=== PATIENT | female | born 1965 | race Caucasian/White ===

== ENCOUNTER 2024-10-01 19:54 | Inpatient (IN) ==
[2024-10-01 20:42] LABS: POC Calcium, Ionized 1.13 (1.16-1.32); POC Creatinine 0.7 (0.6-1.2); POC Potassium 3.2 (3.3-5.1)
[2024-10-01] MEDS: SODIUM CHLORIDE IV ONE (20:58)
[2024-10-01] MEDS: POTASSIUM CHLORIDE 20 MEQ TABLET PO ONE (20:58)
[2024-10-01] MEDS: ACETAMINOPHEN 325 MG TABLET PO ONE (20:58)
[2024-10-01] MEDS: PIPERACILLIN SODIUM/TAZOBACTAM 3.375 GM in DEXTROSE 5% IN WATER 50 ML IV SCH (21:17)
[2024-10-01 21:24] LABS: Basophils # (Auto) 0.04 K/mcL (0.00-0.30); Basophils % (Auto) 0.5 % (0.0-2.0); Eosinophils # (Auto) 0.13 K/mcL (0.00-0.70); Eosinophils % (Auto) 1.6 % (0.0-7.0); Hematocrit 37.6 % (34.1-44.9); Hemoglobin 13.2 g/dL (11.2-15.7); Lymphocytes # (Auto) 0.94 K/mcL (1.50-4.80); Lymphocytes % (Auto) 11.8 % (15.5-49.0); Mean Cell Volume 85.5 fL (80.0-100.0); Mean Corpuscular HGB Conc 35.1 g/dL (31.0-36.0); Mean Platelet Volume 9.4 fL (8.8-12.5); Monocytes # (Auto) 0.76 K/mcL (0.10-0.90); Monocytes % (Auto) 9.6 % (1.0-12.0); Platelet Count 338 K/mcL (140-440); Red Cell Distribution Width 11.4 % (11.5-14.5)
[2024-10-01 21:34] LABS: Prothrombin Time 13.1 sec (11.9-14.5)
[2024-10-01 21:42] LABS: ALT/SGPT 33 U/L (<40); AST/SGOT 34 U/L (<32); Albumin 3.7 gm/dL (3.2-5.2); Albumin/Globulin Ratio 0.9 (1.0-2.3); Alkaline Phosphatase 204 U/L (39-117); Bilirubin,Total 0.5 mg/dL (0.1-1.0); Blood Urea Nitrogen 11 mg/dL (6-20); Calcium 9.9 mg/dL (8.6-10.4); Carbon Dioxide 25 mmol/L (22-30); Chloride 90 mmol/L (96-108); Globulin 4.2 gm/dL (2.2-3.7); Glomerular Filtration Rate 96; Glucose 221 mg/dL (70-105); Potassium 3.3 mmol/L (3.3-5.1); Sodium 129 mmol/L (133-145)
[2024-10-01] MEDS: VANCOMYCIN 1,500 MG in 0.9 % SODIUM CHLORIDE 500 ML IV ONE (21:53)
[2024-10-02 00:38] LABS: Appearance,Urine Clear (Clear); Bacteria,Urine Few /hpf (0); Bilirubin,Urine Negative (Negative); Color,Urine Yellow; Glucose,Urine (UA) 250 mg/dL (Negative); Ketones,Urine Trace mg/dL (Negative); Leukocyte Esterase,Urine Negative /uL (Negative); Mucus,Urine Few /hpf; Nitrate,Urine Negative (Negative); PH,Urine 5.5 (5.0-9.0); Protein,Urine 30 mg/dL (Negative); Urine Blood Negative ery/mcL (Negative); Urine Hyaline Cast 3 /lph (0-2); Urine RBC 1 /hpf (0-3); Urine Squamous Epithelial Cell 5 /hpf (0-4); Urine WBC 7 /hpf (0-4)
[2024-10-02] MEDS ORDERED: IPRATROPIUM/ALBUTEROL 3 ML AMPUL.NEB NEB PRN (00:57)
[2024-10-02] MEDS ORDERED: morphine 4 MG/ML VIAL IV PRN (00:57)
[2024-10-02] MEDS ORDERED: DEXTROSE 50% 50 ML VIAL IV PRN (00:57)
[2024-10-02] MEDS ORDERED: oxyCODONE IR 5 MG TABLET PO PRN (00:57)
[2024-10-02] MEDS ORDERED: ONDANSETRON 4 MG/2 ML VIAL IV PRN (00:57)
[2024-10-02] MEDS ORDERED: DEXTROSE 31 GM ORAL.SUSP PO PRN (00:57)
[2024-10-02] MEDS ORDERED: traZODone HCL 50 MG TABLET PO PRN (00:57)
[2024-10-02] MEDS ORDERED: IOPAMIDOL 100 ML BOTTLE IV ONE (01:08)
[2024-10-02] MEDS: 0.9 % SODIUM CHLORIDE 1,000 ML IV SCH (01:08)
[2024-10-02] MEDS: VANCOMYCIN PER PHARMACY IV ONE (01:16)
[2024-10-02] MEDS: PIPERACILLIN SODIUM/TAZOBACTAM 3.375 GM in DEXTROSE 5% IN WATER 50 ML IV SCH (01:51)
[2024-10-02] MEDS: 0.9 % SODIUM CHLORIDE 10 ML SYRINGE IV SCH (05:14)
[2024-10-02 06:47] LABS: Basophils # (Auto) 0.02 K/mcL (0.00-0.30); Basophils % (Auto) 0.3 % (0.0-2.0); Eosinophils # (Auto) 0.15 K/mcL (0.00-0.70); Eosinophils % (Auto) 2.4 % (0.0-7.0); Hematocrit 32.7 % (34.1-44.9); Hemoglobin 11.3 g/dL (11.2-15.7); Lymphocytes # (Auto) 0.74 K/mcL (1.50-4.80); Lymphocytes % (Auto) 12.1 % (15.5-49.0); Mean Corpuscular HGB Conc 34.6 g/dL (31.0-36.0); Mean Platelet Volume 9.8 fL (8.8-12.5); Monocytes # (Auto) 0.94 K/mcL (0.10-0.90); Monocytes % (Auto) 15.3 % (1.0-12.0); Neutrophils % (Auto) 67.8 % (38.0-78.0); Platelet Count 306 K/mcL (140-440); RBC 3.76 M/mcL (3.59-5.38); Red Cell Distribution Width 11.6 % (11.5-14.5); WBC 6.1 K/mcL (4.5-11.0)
[2024-10-02 07:17] LABS: Estimated Average Glucose(eAG) 289 mg/dL; Hemoglobin A1C 11.7 % Hgb (4.0-6.0)
[2024-10-02] MEDS: INSULIN LISPRO 1 UNIT/0.01 ML UNIT SQ SCH (07:57)
[2024-10-02] MEDS ORDERED: VANCOMYCIN PER PHARMACY IV SCH (08:15)
[2024-10-02] MEDS: VANCOMYCIN 1,250 MG in 0.9 % SODIUM CHLORIDE 500 ML IV SCH (09:25)
[2024-10-02] MEDS: PIPERACILLIN SODIUM/TAZOBACTAM 4.5 GM in DEXTROSE 5% IN WATER 100 ML IV SCH (09:28)
[2024-10-02] MEDS: ENOXAPARIN 40 MG/0.4 ML SYRINGE SQ SCH (09:35)
[2024-10-02] MEDS: POTASSIUM CHLORIDE 20 MEQ TABLET PO SCH (09:35)
[2024-10-02] MEDS: DOCUSATE SODIUM 100 MG CAPSULE PO SCH (09:35)
[2024-10-02] MEDS ORDERED: CETIRIZINE 10 MG TABLET PO PRN (12:17)
[2024-10-02] MEDS ORDERED: ERGOCALCIFEROL (VITAMIN D2) 50,000 UNIT CAPSULE PO SCH (12:30)
[2024-10-02] MEDS: ESCITALOPRAM 20 MG TABLET PO SCH (13:10)
[2024-10-02] MEDS: INSULIN GLARGINE, HUMAN 1 UNIT/0.01 ML SQ ONE (13:11)
[2024-10-02] MEDS: ACETAMINOPHEN 325 MG TABLET PO PRN (16:41)
[2024-10-02] MEDS: traMADol 50 MG TABLET PO PRN (18:37)
[2024-10-02] MEDS: GABAPENTIN 100 MG CAPSULE PO SCH (21:19)
[2024-10-02] MEDS: SENNOSIDES 1 TABLET PO SCH (21:19)
[2024-10-02] MEDS: traZODone HCL 50 MG TABLET PO SCH (21:21)
[2024-10-03 06:14] LABS: Basophils # (Auto) 0.05 K/mcL (0.00-0.30); Basophils % (Auto) 0.8 % (0.0-2.0); Eosinophils # (Auto) 0.13 K/mcL (0.00-0.70); Eosinophils % (Auto) 2.2 % (0.0-7.0); Hemoglobin 11.1 g/dL (11.2-15.7); Lymphocytes # (Auto) 1.36 K/mcL (1.50-4.80); Lymphocytes % (Auto) 22.8 % (15.5-49.0); Mean Cell Volume 87.2 fL (80.0-100.0); Mean Corpuscular HGB Conc 34.7 g/dL (31.0-36.0); Mean Platelet Volume 9.5 fL (8.8-12.5); Monocytes # (Auto) 1.05 K/mcL (0.10-0.90); Monocytes % (Auto) 17.6 % (1.0-12.0); Neutrophils % (Auto) 54.9 % (38.0-78.0); Platelet Count 304 K/mcL (140-440); RBC 3.67 M/mcL (3.59-5.38); Red Cell Distribution Width 11.7 % (11.5-14.5)
[2024-10-03] MEDS: glipiZIDE 5 MG TAB.XL.24H PO SCH (07:31)
[2024-10-03] MEDS: OMEPRAZOLE 20 MG CAPSULE PO SCH (07:34)
[2024-10-03] MEDS: LORazepam 1 MG TABLET PO SCH (08:32)
[2024-10-03] MEDS: VITAMIN D3 25 MCG TABLET PO SCH (08:32)
[2024-10-03] MEDS: ATORVASTATIN 40 MG TABLET PO SCH (08:32)
[2024-10-03] MEDS: FISH OIL 1,000 MG CAPSULE PO SCH (08:32)
[2024-10-03] MEDS: LISINOPRIL 20 MG TABLET PO SCH (08:32)
[2024-10-03] MEDS: MELOXICAM 7.5 MG TABLET PO SCH (08:33)
[2024-10-03] MEDS: METOPROLOL SUCCINATE 25 MG TAB.XL.24H PO SCH (08:33)
[2024-10-03] MEDS: ZINC SULFATE 50 MG CAPSULE PO SCH (08:39)
[2024-10-03] MEDS: FENOFIBRATE 43 MG CAPSULE PO SCH (08:39)
[2024-10-03] MEDS: INSULIN GLARGINE, HUMAN 1 UNIT/0.01 ML SQ SCH (09:12)
[2024-10-03] MEDS: PIPERACILLIN SODIUM/TAZOBACTAM 4.5 GM in DEXTROSE 5% IN WATER 100 ML IV SCH (11:28)
[2024-10-04 06:40] LABS: Basophils # (Auto) 0.03 K/mcL (0.00-0.30); Basophils % (Auto) 0.5 % (0.0-2.0); Eosinophils # (Auto) 0.15 K/mcL (0.00-0.70); Eosinophils % (Auto) 2.5 % (0.0-7.0); Hematocrit 33.8 % (34.1-44.9); Hemoglobin 11.7 g/dL (11.2-15.7); Lymphocytes # (Auto) 1.47 K/mcL (1.50-4.80); Lymphocytes % (Auto) 24.1 % (15.5-49.0); Mean Cell Volume 87.8 fL (80.0-100.0); Mean Corpuscular HGB Conc 34.6 g/dL (31.0-36.0); Mean Platelet Volume 9.6 fL (8.8-12.5); Monocytes # (Auto) 0.77 K/mcL (0.10-0.90); Monocytes % (Auto) 12.6 % (1.0-12.0); Platelet Count 321 K/mcL (140-440); RBC 3.85 M/mcL (3.59-5.38); Red Cell Distribution Width 11.7 % (11.5-14.5); WBC 6.1 K/mcL (4.5-11.0)
[2024-10-04 11:43] VITALS: TEMP 98.8; O2SAT 96
[2024-10-04] MEDS: [UNRECOGNIZED DRUG - OTHER] MISC ONE (13:03)
== END 2024-10-04 14:07 | disposition home or self-care (01) | DRG 872 ==
LOC: ED 19:54 → MEDSUR 10-02 00:56
PROVIDERS: ADMIT Internal Medicine; ATTEND Internal Medicine

== ENCOUNTER 2024-10-17 13:36 | Inpatient (IN) ==
[2024-10-17 14:57] LABS: Basophils # (Auto) 0.03 K/mcL (0.00-0.30); Basophils % (Auto) 0.5 % (0.0-2.0); Eosinophils # (Auto) 0.15 K/mcL (0.00-0.70); Eosinophils % (Auto) 2.7 % (0.0-7.0); Hematocrit 34.4 % (34.1-44.9); Hemoglobin 11.7 g/dL (11.2-15.7); Lymphocytes # (Auto) 2.45 K/mcL (1.50-4.80); Lymphocytes % (Auto) 43.7 % (15.5-49.0); Mean Cell Volume 87.1 fL (80.0-100.0); Mean Platelet Volume 8.8 fL (8.8-12.5); Monocytes # (Auto) 0.39 K/mcL (0.10-0.90); Neutrophils % (Auto) 45.9 % (38.0-78.0); Platelet Count 336 K/mcL (140-440); RBC 3.95 M/mcL (3.59-5.38); Red Cell Distribution Width 11.7 % (11.5-14.5); WBC 5.6 K/mcL (4.5-11.0)
[2024-10-17] MEDS: 0.9 % SODIUM CHLORIDE 1,000 ML IV ONE (15:02)
[2024-10-17] MEDS: PIPERACILLIN SODIUM/TAZOBACTAM 3.375 GM in DEXTROSE 5% IN WATER 100 ML IV SCH (15:13)
[2024-10-17 15:19] LABS: ALT/SGPT 18 U/L (<40); AST/SGOT 17 U/L (<32); Albumin 3.8 gm/dL (3.2-5.2); Alkaline Phosphatase 93 U/L (39-117); Bilirubin,Total 0.3 mg/dL (0.1-1.0); Blood Urea Nitrogen 15 mg/dL (6-20); Calcium 9.8 mg/dL (8.6-10.4); Carbon Dioxide 25 mmol/L (22-30); Chloride 95 mmol/L (96-108); Globulin 3.9 gm/dL (2.2-3.7); Glomerular Filtration Rate 71; Glucose 338 mg/dL (70-105); Potassium 4.5 mmol/L (3.3-5.1); Sodium 132 mmol/L (133-145)
[2024-10-17] MEDS: INSULIN REGULAR, HUMAN 1 UNIT/0.01 ML UNIT IV ONE (16:29)
[2024-10-17] MEDS ORDERED: METOCLOPRAMIDE 10 MG/2 ML VIAL IV PRN (17:42)
[2024-10-17] MEDS ORDERED: DEXTROSE 50% 50 ML VIAL IV PRN (17:42)
[2024-10-17] MEDS ORDERED: ONDANSETRON 4 MG/2 ML VIAL IV PRN (17:42)
[2024-10-17] MEDS ORDERED: POTASSIUM CHLORIDE 20 MEQ TABLET PO PRN ×2 (17:42)
[2024-10-17] MEDS ORDERED: POTASSIUM CHLORIDE 40 MEQ in DEXTROSE 5% IN WATER 500 ML IV PRN (17:42)
[2024-10-17] MEDS ORDERED: MAGNESIUM SULFATE 2 GM/50 ML BAG IV PRN (17:42)
[2024-10-17] MEDS ORDERED: DEXTROSE 31 GM ORAL.SUSP PO PRN (17:42)
[2024-10-17] MEDS ORDERED: ACETAMINOPHEN 325 MG TABLET PO PRN (17:42)
[2024-10-17] MEDS ORDERED: POLYETHYLENE GLYCOL 3350 17 GM PACKET PO PRN (17:42)
[2024-10-17] MEDS ORDERED: SENNOSIDES 1 TABLET PO PRN (17:42)
[2024-10-17] MEDS ORDERED: IPRATROPIUM/ALBUTEROL 3 ML AMPUL.NEB NEB PRN (17:42)
[2024-10-17] MEDS ORDERED: traMADol 50 MG TABLET PO PRN (19:25)
[2024-10-17] MEDS: ESCITALOPRAM 20 MG TABLET PO ONE (20:03)
[2024-10-17] MEDS: GABAPENTIN 100 MG CAPSULE PO SCH (20:16)
[2024-10-17] MEDS: traZODone HCL 50 MG TABLET PO SCH (20:16)
[2024-10-17] MEDS: PIPERACILLIN SODIUM/TAZOBACTAM 4.5 GM in DEXTROSE 5% IN WATER 100 ML IV SCH (20:17)
[2024-10-17] MEDS: HEPARIN 5,000 UNIT/ML VIAL SQ ONE (20:17)
[2024-10-17] MEDS: DOCUSATE SODIUM 100 MG CAPSULE PO SCH (20:17)
[2024-10-17] MEDS: INSULIN LISPRO 1 UNIT/0.01 ML UNIT SQ SCH (20:26)
[2024-10-17] MEDS: 0.9 % SODIUM CHLORIDE 10 ML SYRINGE IV SCH (20:27)
[2024-10-18 06:49] LABS: ALT/SGPT 16 U/L (<40); AST/SGOT 17 U/L (<32); Albumin 3.5 gm/dL (3.2-5.2); Alkaline Phosphatase 77 U/L (39-117); Bilirubin,Direct < 0.2 mg/dL (0-0.3); Bilirubin,Total 0.2 mg/dL (0.1-1.0); Blood Urea Nitrogen 13 mg/dL (6-20); Calcium 9.9 mg/dL (8.6-10.4); Carbon Dioxide 27 mmol/L (22-30); Chloride 103 mmol/L (96-108); Globulin 3.5 gm/dL (2.2-3.7); Glomerular Filtration Rate 63; Glucose 68 mg/dL (70-105); Lactate Dehydrogenase 124 U/L (135-225); Potassium 4.3 mmol/L (3.3-5.1); Sodium 140 mmol/L (133-145); Triglycerides 204 mg/dL (<150); Uric Acid 2.4 mg/dL (2.5-8.0)
[2024-10-18] MEDS: OMEPRAZOLE 20 MG CAPSULE PO SCH (07:30)
[2024-10-18] MEDS: ATORVASTATIN 40 MG TABLET PO SCH (09:13)
[2024-10-18] MEDS: ESCITALOPRAM 20 MG TABLET PO SCH (09:13)
[2024-10-18] MEDS: LISINOPRIL 20 MG TABLET PO SCH (09:13)
[2024-10-18] MEDS: LORazepam 1 MG TABLET PO SCH (09:13)
[2024-10-18] MEDS ORDERED: FLU VACC TS2024-25(6MOS UP)/PF 45 MCG/0.5 ML SYRINGE IM ONE (10:00)
[2024-10-18] MEDS ORDERED: PROPOFOL 200 MG/20 ML VIAL IV ONE (10:53)
[2024-10-18] MEDS ORDERED: MIDAZOLAM 2 MG/2 ML VIAL ONE (10:53)
[2024-10-18] MEDS ORDERED: KETAMINE 50 MG/ML ML ONE (10:54)
[2024-10-18] MEDS ORDERED: KETOROLAC 30 MG/ML VIAL ONE (10:56)
[2024-10-18] MEDS ORDERED: FAMOTIDINE/PF 20 MG/2 ML VIAL IV ONE (10:56)
[2024-10-18] MEDS ORDERED: GLYCOPYRROLATE 0.2 MG/ML VIAL IV ONE (10:56)
[2024-10-18] MEDS ORDERED: ONDANSETRON 4 MG/2 ML VIAL ONE (10:56)
[2024-10-18] MEDS ORDERED: METOCLOPRAMIDE 10 MG/2 ML VIAL ONE (10:56)
[2024-10-18] MEDS ORDERED: ePHEDrine 50 MG/5 ML SYRINGE (ANEST) IV ONE (10:56)
[2024-10-18] MEDS ORDERED: DEXAMETHASONE 10 MG/ML VIAL ONE (10:56)
[2024-10-18] MEDS ORDERED: LIDOCAINE 2% PF 5 ML VIAL ONE (10:56)
[2024-10-18] MEDS: VANCOMYCIN 1 GM VIAL TOPICAL SCH (11:30)
[2024-10-18] MEDS: VANCOMYCIN 1 GM VIAL IP SCH (11:30)
[2024-10-18] MEDS ORDERED: IPRATROPIUM/ALBUTEROL 3 ML AMPUL.NEB NEB PRN (11:34)
[2024-10-18] MEDS ORDERED: KETOROLAC 30 MG/ML VIAL IV PRN (11:34)
[2024-10-18] MEDS: 0.9 % SODIUM CHLORIDE 500 ML IV ONE (12:41)
[2024-10-18] MEDS: HYDROcodone/APAP 5/325MG TABLET PO PRN (13:32)
[2024-10-18] MEDS: FLU VACC TS2024-25(6MOS UP)/PF 45 MCG/0.5 ML SYRINGE IM ONE (14:54)
[2024-10-18] MEDS: morphine 2 MG/ML VIAL IV PRN (16:45)
[2024-10-18] MEDS: LACTATED RINGERS 1,000 ML IV SCH (18:31)
[2024-10-18] MEDS: HYDROcodone/APAP 10/325MG TABLET PO PRN (20:17)
[2024-10-18] MEDS: HEPARIN 5,000 UNIT/ML VIAL SQ SCH (20:19)
[2024-10-18] MEDS: INSULIN LISPRO 1 UNIT/0.01 ML UNIT SQ SCH (20:52)
[2024-10-18] MEDS ORDERED: INSULIN LISPRO 1 UNIT/0.01 ML UNIT SQ SCH (21:00)
[2024-10-19 07:38] VITALS: TEMP 97.9; O2SAT 99
[2024-10-19] MEDS: INSULIN GLARGINE, HUMAN 1 UNIT/0.01 ML SQ SCH (08:29)
== END 2024-10-19 13:02 | disposition home or self-care (01) | DRG 617 ==
LOC: ED 13:36 → MEDSUR 17:29
PROVIDERS: ADMIT Internal Medicine; ATTEND Internal Medicine

== ENCOUNTER 2025-07-29 16:51 | Inpatient (IN) ==
[2025-07-29] MEDS: PIPERACILLIN SODIUM/TAZOBACTAM 3.375 GM in DEXTROSE 5% IN WATER 50 ML IV ONE (17:33)
[2025-07-29 17:57] LABS: Basophils # (Auto) 0.03 K/mcL (0.00-0.30); Basophils % (Auto) 0.4 % (0.0-2.0); Eosinophils # (Auto) 0.13 K/mcL (0.00-0.70); Eosinophils % (Auto) 1.7 % (0.0-7.0); Hematocrit 33.8 % (34.1-44.9); Hemoglobin 11.6 g/dL (11.2-15.7); Lymphocytes # (Auto) 2.61 K/mcL (1.50-4.80); Lymphocytes % (Auto) 34.4 % (15.5-49.0); Mean Corpuscular HGB Conc 34.3 g/dL (31.0-36.0); Monocytes # (Auto) 0.48 K/mcL (0.10-0.90); Monocytes % (Auto) 6.3 % (1.0-12.0); Neutrophils % (Auto) 56.9 % (38.0-78.0); Platelet Count 345 K/mcL (140-440); RBC 3.83 M/mcL (3.59-5.38); WBC 7.6 K/mcL (4.5-11.0)
[2025-07-29 18:02] LABS: C-Reactive Protein 2.38 mg/dL (0.03-0.80)
[2025-07-29] MEDS: VANCOMYCIN 1,500 MG in 0.9 % SODIUM CHLORIDE 500 ML IV ONE (18:03)
[2025-07-29 18:09] LABS: ALT/SGPT 15 U/L (<40); AST/SGOT 15 U/L (<32); Albumin 3.4 gm/dL (3.2-5.2); Albumin/Globulin Ratio 0.9 (1.0-2.3); Alkaline Phosphatase 117 U/L (39-117); Anion Gap 11.0 (8.0-16.0); Bilirubin,Total 0.3 mg/dL (0.1-1.0); Blood Urea Nitrogen 7 mg/dL (6-20); Calcium 9.2 mg/dL (8.6-10.4); Carbon Dioxide 27 mmol/L (22-30); Chloride 96 mmol/L (96-108); Globulin 3.7 gm/dL (2.2-3.7); Glucose 464 mg/dL (70-105); Potassium 3.4 mmol/L (3.3-5.1); Sodium 134 mmol/L (133-145)
[2025-07-29] MEDS: INSULIN REGULAR, HUMAN 1 UNIT/0.01 ML UNIT IV ONE ×2 (18:35→19:54)
[2025-07-29] MEDS: 0.9 % SODIUM CHLORIDE 1,000 ML IV ONE ×2 (18:36→19:39)
[2025-07-29] MEDS ORDERED: ACETAMINOPHEN 325 MG TABLET PO PRN (21:12)
[2025-07-29] MEDS ORDERED: POLYETHYLENE GLYCOL 3350 17 GM PACKET PO PRN (21:12)
[2025-07-29] MEDS ORDERED: MELATONIN 3 MG TABLET PO PRN (21:12)
[2025-07-29] MEDS ORDERED: DEXTROSE 50% 50 ML VIAL IV PRN (21:12)
[2025-07-29] MEDS ORDERED: DEXTROSE 31 GM ORAL.SUSP PO PRN (21:12)
[2025-07-29] MEDS ORDERED: VANCOMYCIN PER PHARMACY IV SCH (21:12)
[2025-07-29] MEDS ORDERED: SENNOSIDES 1 TABLET PO PRN (21:12)
[2025-07-29] MEDS ORDERED: ONDANSETRON 4 MG/2 ML VIAL IV PRN (21:12)
[2025-07-29] MEDS: LACTATED RINGERS 1,000 ML IV SCH ×2 (21:58→22:11)
[2025-07-29] MEDS: metroNIDAZOLE 500 MG/100 ML BAG IV SCH (22:12)
[2025-07-29] MEDS: CEFEPIME 2 GM VIAL IV SCH (22:12)
[2025-07-29] MEDS: 0.9 % SODIUM CHLORIDE 10 ML SYRINGE IV SCH (22:12)
[2025-07-29] MEDS: DOCUSATE SODIUM 100 MG CAPSULE PO SCH (22:12)
[2025-07-29] MEDS: INSULIN LISPRO 1 UNIT/0.01 ML UNIT SQ SCH (22:54)
[2025-07-29] MEDS: INSULIN GLARGINE, HUMAN 1 UNIT/0.01 ML SQ ONE (22:55)
[2025-07-29 23:30] LABS: Estimated Average Glucose(eAG) 312 mg/dL; Hemoglobin A1C 12.5 % Hgb (4.0-6.0)
[2025-07-29 23:37] LABS: Anion Gap 7.0 (8.0-16.0); Blood Urea Nitrogen 8 mg/dL (6-20); Calcium 8.3 mg/dL (8.6-10.4); Carbon Dioxide 26 mmol/L (22-30); Chloride 104 mmol/L (96-108); Glucose 306 mg/dL (70-105); Potassium 3.2 mmol/L (3.3-5.1); Sodium 137 mmol/L (133-145)
[2025-07-30] MEDS: POTASSIUM CHLORIDE 20 MEQ TABLET PO ONE ×2 (02:13)
[2025-07-30 05:49] LABS: Basophils # (Auto) 0.04 K/mcL (0.00-0.30); Basophils % (Auto) 0.6 % (0.0-2.0); Eosinophils # (Auto) 0.22 K/mcL (0.00-0.70); Eosinophils % (Auto) 3.2 % (0.0-7.0); Hematocrit 31.3 % (34.1-44.9); Hemoglobin 10.8 g/dL (11.2-15.7); Lymphocytes # (Auto) 2.96 K/mcL (1.50-4.80); Lymphocytes % (Auto) 43.5 % (15.5-49.0); Mean Corpuscular HGB Conc 34.5 g/dL (31.0-36.0); Monocytes # (Auto) 0.52 K/mcL (0.10-0.90); Monocytes % (Auto) 7.6 % (1.0-12.0); Neutrophils % (Auto) 44.8 % (38.0-78.0); Platelet Count 315 K/mcL (140-440); RBC 3.55 M/mcL (3.59-5.38); WBC 6.8 K/mcL (4.5-11.0)
[2025-07-30 06:11] LABS: C-Reactive Protein 1.59 mg/dL (0.03-0.80)
[2025-07-30 06:28] LABS: ALT/SGPT 12 U/L (<40); AST/SGOT 12 U/L (<32); Albumin 3.1 gm/dL (3.2-5.2); Albumin/Globulin Ratio 1.0 (1.0-2.3); Alkaline Phosphatase 98 U/L (39-117); Anion Gap 7.0 (8.0-16.0); Bilirubin,Total 0.2 mg/dL (0.1-1.0); Blood Urea Nitrogen 9 mg/dL (6-20); Calcium 8.8 mg/dL (8.6-10.4); Carbon Dioxide 25 mmol/L (22-30); Chloride 104 mmol/L (96-108); Globulin 3.1 gm/dL (2.2-3.7); Glucose 274 mg/dL (70-105); Potassium 3.8 mmol/L (3.3-5.1); Sodium 136 mmol/L (133-145)
[2025-07-30] MEDS: VANCOMYCIN 1,000 MG in 0.9 % SODIUM CHLORIDE 250 ML IV SCH (07:34)
[2025-07-30] MEDS: INSULIN GLARGINE, HUMAN 1 UNIT/0.01 ML SQ SCH (10:09)
[2025-07-30] MEDS: ESCITALOPRAM 20 MG TABLET PO SCH (21:03)
[2025-07-30] MEDS: METOPROLOL SUCCINATE 25 MG TAB.XL.24H PO SCH (21:03)
[2025-07-30] MEDS: ATORVASTATIN 40 MG TABLET PO SCH (21:03)
[2025-07-30 21:07] LABS: Bilirubin,Urine NEGATIVE (Negative); Color,Urine LT. YELLOW; Glucose,Urine (UA) NEGATIVE (Negative); Ketones,Urine NEGATIVE (Negative); Leukocyte Esterase,Urine NEGATIVE /uL (Negative); PH,Urine 6.5 (5.0-9.0); Protein,Urine NEGATIVE (Negative); Specific Gravity,Urine 1.010 (1.000-1.035); Urobilinogen,Urine 0.2 mg/dL
[2025-07-30] MEDS: ENOXAPARIN 40 MG/0.4 ML SYRINGE SQ SCH (21:30)
[2025-07-31 06:32] LABS: Basophils # (Auto) 0.05 K/mcL (0.00-0.30); Basophils % (Auto) 0.8 % (0.0-2.0); Eosinophils # (Auto) 0.19 K/mcL (0.00-0.70); Eosinophils % (Auto) 3.1 % (0.0-7.0); Hematocrit 31.1 % (34.1-44.9); Hemoglobin 10.7 g/dL (11.2-15.7); Lymphocytes # (Auto) 2.55 K/mcL (1.50-4.80); Lymphocytes % (Auto) 42.2 % (15.5-49.0); Mean Corpuscular HGB Conc 34.4 g/dL (31.0-36.0); Monocytes # (Auto) 0.51 K/mcL (0.10-0.90); Monocytes % (Auto) 8.4 % (1.0-12.0); Neutrophils % (Auto) 44.8 % (38.0-78.0); Platelet Count 303 K/mcL (140-440); RBC 3.50 M/mcL (3.59-5.38); WBC 6.0 K/mcL (4.5-11.0)
[2025-07-31 07:05] LABS: ALT/SGPT 22 U/L (<40); AST/SGOT 23 U/L (<32); Albumin 3.0 gm/dL (3.2-5.2); Albumin/Globulin Ratio 0.9 (1.0-2.3); Alkaline Phosphatase 94 U/L (39-117); Anion Gap 7.0 (8.0-16.0); Bilirubin,Direct < 0.2 mg/dL (0-0.3); Bilirubin,Total 0.2 mg/dL (0.1-1.0); Blood Urea Nitrogen 11 mg/dL (6-20); C-Reactive Protein 0.83 mg/dL (0.03-0.80); Calcium 9.0 mg/dL (8.6-10.4); Carbon Dioxide 27 mmol/L (22-30); Chloride 106 mmol/L (96-108); Globulin 3.2 gm/dL (2.2-3.7); Glucose 169 mg/dL (70-105); Phosphorous 3.9 mg/dL (2.5-4.5); Potassium 3.4 mmol/L (3.3-5.1); Sodium 140 mmol/L (133-145); Triglycerides 150 mg/dL (<150); Uric Acid 3.0 mg/dL (2.5-8.0)
[2025-07-31] MEDS: LISINOPRIL 20 MG TABLET PO SCH (08:24)
[2025-07-31] MEDS ORDERED: FAMOTIDINE/PF 20 MG/2 ML VIAL IV ONE (12:28)
[2025-07-31] MEDS ORDERED: MIDAZOLAM 2 MG/2 ML VIAL ONE (12:28)
[2025-07-31] MEDS ORDERED: PROPOFOL 200 MG/20 ML VIAL IV ONE (12:28)
[2025-07-31] MEDS ORDERED: DEXAMETHASONE 10 MG/ML VIAL ONE (12:29)
[2025-07-31] MEDS ORDERED: LIDOCAINE 2% PF 5 ML VIAL ONE (12:29)
[2025-07-31] MEDS ORDERED: KETOROLAC 30 MG/ML VIAL ONE (12:29)
[2025-07-31] MEDS ORDERED: GLYCOPYRROLATE 0.2 MG/ML VIAL IV ONE (12:29)
[2025-07-31] MEDS ORDERED: ONDANSETRON 4 MG/2 ML VIAL ONE (12:29)
[2025-07-31] MEDS ORDERED: METOCLOPRAMIDE 10 MG/2 ML VIAL ONE (12:29)
[2025-07-31] MEDS ORDERED: ePHEDrine 50 MG/5 ML SYRINGE (ANEST) IV ONE (13:49)
[2025-07-31] MEDS ORDERED: HYDROmorphone 0.5 MG/0.5 ML SYRINGE IV PRN (13:56)
[2025-07-31] MEDS ORDERED: IPRATROPIUM/ALBUTEROL 3 ML AMPUL.NEB NEB PRN (13:56)
[2025-07-31] MEDS ORDERED: fentaNYL 100 MCG/2 ML VIAL IV PRN (13:56)
[2025-07-31] MEDS ORDERED: DROPERIDOL 5 MG/2 ML VIAL IV PRN (13:56)
[2025-07-31] MEDS: BUPIVACAINE 0.5% 50 ML VIAL IJ ONE (13:59)
[2025-07-31] MEDS: ACETAMINOPHEN 1,000 MG/100 ML BAG IV ONE (14:38)
[2025-07-31] MEDS: LACTATED RINGERS 1,000 ML IV SCH (15:04)
[2025-07-31] MEDS: VANCOMYCIN 1,250 MG in 0.9 % SODIUM CHLORIDE 500 ML IV SCH (21:38)
[2025-07-31] MEDS: 0.9 % SODIUM CHLORIDE 10 ML SYRINGE IV SCH (21:39)
[2025-08-01 06:19] LABS: Basophils # (Auto) 0.03 K/mcL (0.00-0.30); Basophils % (Auto) 0.3 % (0.0-2.0); Eosinophils # (Auto) 0.01 K/mcL (0.00-0.70); Eosinophils % (Auto) 0.1 % (0.0-7.0); Hematocrit 31.8 % (34.1-44.9); Hemoglobin 11.1 g/dL (11.2-15.7); Lymphocytes # (Auto) 1.51 K/mcL (1.50-4.80); Lymphocytes % (Auto) 16.1 % (15.5-49.0); Mean Corpuscular HGB Conc 34.9 g/dL (31.0-36.0); Monocytes # (Auto) 0.55 K/mcL (0.10-0.90); Monocytes % (Auto) 5.9 % (1.0-12.0); Neutrophils % (Auto) 77.2 % (38.0-78.0); Platelet Count 316 K/mcL (140-440); RBC 3.64 M/mcL (3.59-5.38); WBC 9.4 K/mcL (4.5-11.0)
[2025-08-01 06:41] LABS: ALT/SGPT 22 U/L (<40); AST/SGOT 21 U/L (<32); Albumin 3.1 gm/dL (3.2-5.2); Albumin/Globulin Ratio 1.0 (1.0-2.3); Alkaline Phosphatase 100 U/L (39-117); Anion Gap 8.0 (8.0-16.0); Bilirubin,Direct < 0.2 mg/dL (0-0.3); Bilirubin,Total 0.3 mg/dL (0.1-1.0); Blood Urea Nitrogen 14 mg/dL (6-20); C-Reactive Protein 0.50 mg/dL (0.03-0.80); Calcium 8.7 mg/dL (8.6-10.4); Carbon Dioxide 25 mmol/L (22-30); Chloride 100 mmol/L (96-108); Globulin 3.0 gm/dL (2.2-3.7); Glucose 314 mg/dL (70-105); Phosphorous 3.6 mg/dL (2.5-4.5); Potassium 3.9 mmol/L (3.3-5.1); Sodium 133 mmol/L (133-145); Triglycerides 181 mg/dL (<150); Uric Acid 2.9 mg/dL (2.5-8.0)
[2025-08-01] MEDS: INSULIN GLARGINE, HUMAN 1 UNIT/0.01 ML SQ SCH (09:15)
[2025-08-02] MEDS: INSULIN GLARGINE, HUMAN 1 UNIT/0.01 ML SQ SCH (09:43)
[2025-08-03] MEDS ORDERED: 0.9 % SODIUM CHLORIDE 10 ML SYRINGE IV PRN (13:12)
[2025-08-03] MEDS: ERTAPENEM 1 GM in 0.9 % SODIUM CHLORIDE 50 ML IV SCH (14:01)
[2025-08-03] MEDS: 0.9 % SODIUM CHLORIDE 10 ML SYRINGE IV SCH (21:08)
[2025-08-03] MEDS: HEPARIN 10 UNITS/ML 5ML FLUSH IV SCH ×2 (21:08)
[2025-08-04 06:28] LABS: Basophils # (Auto) 0.05 K/mcL (0.00-0.30); Basophils % (Auto) 0.7 % (0.0-2.0); Eosinophils # (Auto) 0.29 K/mcL (0.00-0.70); Eosinophils % (Auto) 4.1 % (0.0-7.0); Hematocrit 33.0 % (34.1-44.9); Hemoglobin 11.0 g/dL (11.2-15.7); Lymphocytes # (Auto) 3.03 K/mcL (1.50-4.80); Lymphocytes % (Auto) 43.1 % (15.5-49.0); Mean Corpuscular HGB Conc 33.3 g/dL (31.0-36.0); Monocytes # (Auto) 0.68 K/mcL (0.10-0.90); Monocytes % (Auto) 9.7 % (1.0-12.0); Neutrophils % (Auto) 41.4 % (38.0-78.0); Platelet Count 307 K/mcL (140-440); RBC 3.58 M/mcL (3.59-5.38); WBC 7.0 K/mcL (4.5-11.0)
[2025-08-04 06:57] LABS: ALT/SGPT 56 U/L (<40); AST/SGOT 57 U/L (<32); Albumin 3.0 gm/dL (3.2-5.2); Albumin/Globulin Ratio 1.1 (1.0-2.3); Alkaline Phosphatase 117 U/L (39-117); Anion Gap 6.0 (8.0-16.0); Bilirubin,Total < 0.2 mg/dL (0.1-1.0); Blood Urea Nitrogen 14 mg/dL (6-20); Calcium 8.8 mg/dL (8.6-10.4); Carbon Dioxide 26 mmol/L (22-30); Chloride 105 mmol/L (96-108); Globulin 2.7 gm/dL (2.2-3.7); Glucose 206 mg/dL (70-105); Potassium 3.7 mmol/L (3.3-5.1); Sodium 137 mmol/L (133-145)
[2025-08-04] MEDS ORDERED: SODIUM CHLORIDE IRRIG SOLUTION 250 ML BOTTLE IRR ONE (10:09)
[2025-08-04] MEDS ORDERED: LIDOCAINE 1% 20 ML VIAL SQ ONE (10:09)
[2025-08-04] MEDS ORDERED: HEPARIN 500 UNIT/5 ML SYRINGE IV ONE (10:09)
[2025-08-05] MEDS: VANCOMYCIN 1,500 MG in 0.9 % SODIUM CHLORIDE 500 ML IV SCH (09:19)
[2025-08-05 17:34] VITALS: TEMP 98; O2SAT 95
== END 2025-08-05 18:22 | disposition home or self-care (01) | DRG 617 ==
LOC: ED 16:51 → MEDSUR 20:59
PROVIDERS: ADMIT Student in an Organized Health Care Education/Training Program; ATTEND Internal Medicine